=== PATIENT | male | born 1980 | race Caucasian/White ===

== ENCOUNTER 2023-05-05 21:48 | Emergency (ER) | payer SELFPAY ==
[2023-05-05 22:41] LABS: #Basophils 0.1 thou/uL (0.0-0.2); #Eosinphils 0.5 thou/uL (0.0-0.7); #Monocytes 0.8 thou/uL (0.11-0.59); %Basophils 0.6 % (0.0-1.0); %Eosinophils 6.2 % (0.0-10.0); %Lymphocytes 31.6 % (21.0-51.0); %Monocytes 10.3 % (0.0-10.0); Hematocrit 44.8 % (42.0-52.0); Hemoglobin 16.1 g/dL (14.0-18.0); Mean Corpuscular HGB CONC 35.9 g/dL (32.0-36.0); Mean Corpuscular Hemoglobin 32.5 pg (27.0-31.0); Mean Corpuscular Volume 90.3 fl (78.0-98.0); Mean Platelet Volume 9.7 fL (7.4-10.4); Platelet Count 224 10x3/uL (130-400); RBC Distribution Width 12.5 % (11.5-14.5); Red Blood Cell (RBC) Count 4.96 mill/uL (4.70-6.10); White Blood Cell (WBC) Count 7.8 10x3/uL (4.8-10.8)
[2023-05-05 23:06] LABS: ALT (SGPT) 87 U/L (8-55); AST (SGOT) 35 U/L (5-34); Albumin 4.2 g/dL (3.5-5.0); Alkaline Phosphatase 65 U/L (40-110); Anion Gap 12 mmol/L (10-20); BUN (Urea Nitrogen) 14 mg/dL (8.9-20.6); Bilirubin, Total 1.2 mg/dL (0.2-1.2); Calc. Creatinine Clearance 0 mL/min (70-130); Calcium 9.6 mg/dL (7.8-10.44); Carbon Dioxide 27 mmol/L (22-29); Chloride 103 mmol/L (98-107); Estimated GFR 92; Globulin 2.9 g/dL (2.4-3.5); Glucose 123 mg/dL (70-105); Lipase 37 U/L (8-78); Potassium 3.9 mmol/L (3.5-5.1); Protein, Total 7.1 g/dL (6.0-8.3); Sodium 138 mmol/L (136-145)
[2023-05-05 23:28] LABS: Troponin I 0.017 ng/mL (< 0.028)
[2023-05-05] MEDS ORDERED: Aspirin 325 MG TAB ONE (23:40)
[2023-05-05] MEDS ORDERED: Ondansetron PF 4 MG/2 ML Vial ONE (23:40)
[2023-05-05] MEDS ORDERED: Famotidine/PF 20 mg/2ml Vial ONE (23:40)
[2023-05-05] MEDS ORDERED: Dicyclomine 20 MG/2 ML VIAL ONE (23:40)
[2023-05-05] MEDS ORDERED: Mag-Al 1200 mg/1200 mg/30 ML UDCUP ONE (23:40)
[2023-05-05] MEDS ORDERED: hydrALAZINE 20 MG/ML VIAL ONE (23:44)
[2023-05-06] MEDS ORDERED: Morphine 4 MG/ML VIAL ONE (00:25)
[2023-05-06 01:38] LABS: Troponin I 0.018 ng/mL (< 0.028)
[2023-05-06] MEDS ORDERED: Iopamidol-370 76% 500 ML MDV (1 ML CHARGE) ONE (10:21)
== END 2023-05-06 03:27 | disposition home or self-care (01) ==
LOC: ERS 21:48
DX: K20.90 Esophagitis, unspecified without bleeding (principal); K29.70 Gastritis, unspecified, without bleeding; I10 Essential (primary) hypertension
CPT/HCPCS: 36415; 71045; 71275; 74174; 80053; 83690; 84484; 85025; 93005; 96372; 96374; 96375; J0360; J2270; J2405; Q9967; S0028

== ENCOUNTER 2023-05-07 19:30 | Emergency (ER) | payer SELFPAY ==
[2023-05-07] MEDS ORDERED: HYDROmorphone 0.5 MG/0.5 ML SYRINGE ONE (20:09)
[2023-05-07] MEDS ORDERED: Ondansetron PF 4 MG/2 ML Vial ONE (20:09)
[2023-05-07 20:14] LABS: #Basophils 0.1 thou/uL (0.0-0.2); #Eosinphils 0.4 thou/uL (0.0-0.7); #Monocytes 0.9 thou/uL (0.11-0.59); #Neutrophils 4.1 thou/uL (1.40-6.50); %Basophils 0.7 % (0.0-1.0); %Eosinophils 4.9 % (0.0-10.0); %Lymphocytes 25.6 % (21.0-51.0); %Monocytes 12.6 % (0.0-10.0); %Neutrophils 55.9 % (42.0-75.0); Hematocrit 45.8 % (42.0-52.0); Hemoglobin 15.9 g/dL (14.0-18.0); Mean Corpuscular HGB CONC 34.7 g/dL (32.0-36.0); Mean Corpuscular Hemoglobin 31.9 pg (27.0-31.0); Mean Platelet Volume 9.6 fL (7.4-10.4); Platelet Count 207 10x3/uL (130-400); RBC Distribution Width 12.6 % (11.5-14.5); Red Blood Cell (RBC) Count 4.98 mill/uL (4.70-6.10); White Blood Cell (WBC) Count 7.3 10x3/uL (4.8-10.8)
[2023-05-07 20:36] LABS: ALT (SGPT) 77 U/L (8-55); AST (SGOT) 35 U/L (5-34); Albumin 4.1 g/dL (3.5-5.0); Alkaline Phosphatase 61 U/L (40-110); Anion Gap 11 mmol/L (10-20); BUN (Urea Nitrogen) 14 mg/dL (8.9-20.6); Calc. Creatinine Clearance 0 mL/min (70-130); Calcium 9.3 mg/dL (7.8-10.44); Carbon Dioxide 29 mmol/L (22-29); Chloride 103 mmol/L (98-107); Estimated GFR 76; Globulin 3.3 g/dL (2.4-3.5); Glucose 108 mg/dL (70-105); Lipase 30 U/L (8-78); Magnesium 2.3 mg/dL (1.6-2.6); Potassium 4.3 mmol/L (3.5-5.1); Protein, Total 7.4 g/dL (6.0-8.3); Sodium 139 mmol/L (136-145)
[2023-05-07 20:40] LABS: Troponin I 0.019 ng/mL (< 0.028)
== END 2023-05-07 23:51 | disposition home or self-care (01) ==
LOC: ERS 19:30
DX: K80.20 Calculus of gallbladder without cholecystitis without obstruction (principal); R51.9 Headache, unspecified; R11.2 Nausea with vomiting, unspecified; I10 Essential (primary) hypertension
CPT/HCPCS: 70450; 71045; 75809; 76705; 80053; 83690; 83735; 84484; 85025; 93005; 96361; 96374; 96375; J1170; J2405

== ENCOUNTER 2023-05-31 20:00 | Observation (INO) | payer BC ==
[~2023-05-31 20:00] MED LIST: Iopamidol-370 76% 500 ML MDV (1 ML CHARGE) ONE
[2023-05-31 20:39] LABS: #Eosinphils 0.5 thou/uL (0.0-0.7); #Monocytes 0.9 thou/uL (0.11-0.59); #Neutrophils 4.3 thou/uL (1.40-6.50); %Basophils 0.5 % (0.0-1.0); %Lymphocytes 32.8 % (21.0-51.0); %Monocytes 10.8 % (0.0-10.0); %Neutrophils 49.6 % (42.0-75.0); Hematocrit 48.1 % (42.0-52.0); Mean Corpuscular HGB CONC 35.3 g/dL (32.0-36.0); Mean Corpuscular Hemoglobin 32.2 pg (27.0-31.0); Mean Corpuscular Volume 91.1 fl (78.0-98.0); Mean Platelet Volume 9.9 fL (7.4-10.4); Platelet Count 245 10x3/uL (130-400); RBC Distribution Width 12.1 % (11.5-14.5); Red Blood Cell (RBC) Count 5.28 mill/uL (4.70-6.10); White Blood Cell (WBC) Count 8.6 10x3/uL (4.8-10.8)
[2023-05-31 21:02] LABS: ALT (SGPT) 78 U/L (8-55); AST (SGOT) 31 U/L (5-34); Albumin 4.4 g/dL (3.5-5.0); Alkaline Phosphatase 69 U/L (40-110); Anion Gap 17 mmol/L (10-20); BUN (Urea Nitrogen) 13 mg/dL (8.9-20.6); Bilirubin, Total 0.9 mg/dL (0.2-1.2); Calc. Creatinine Clearance 0 mL/min (70-130); Calcium 9.7 mg/dL (7.8-10.44); Carbon Dioxide 26 mmol/L (22-29); Chloride 102 mmol/L (98-107); Estimated GFR 84; Globulin 3.5 g/dL (2.4-3.5); Glucose 148 mg/dL (70-105); Potassium 3.7 mmol/L (3.5-5.1); Protein, Total 7.9 g/dL (6.0-8.3); Sodium 141 mmol/L (136-145)
[2023-05-31 21:05] LABS: Troponin I Less than 0.010 ng/mL (< 0.028)
[2023-05-31] MEDS ORDERED: Ondansetron PF 4 MG/2 ML Vial ONE (21:12)
[2023-05-31] MEDS ORDERED: Ketorolac Tromethamine 30 MG/ML VIAL ONE (21:12)
[2023-05-31] MEDS ORDERED: Famotidine/PF 20 mg/2ml Vial ONE (21:12)
[2023-05-31] MEDS ORDERED: Morphine 4 MG/ML VIAL ONE (21:12)
[2023-06-01] MEDS ORDERED: TETANUS, DIPHTHERIA TOX,ADULT (TDVAX) 0.5 ML VIAL IM ONE (01:13)
[2023-06-01] MEDS ORDERED: Morphine 4 MG/ML VIAL SLOW IVP PRN (01:13)
[2023-06-01] MEDS ORDERED: hydrALAZINE 20 MG/ML VIAL SLOW IVP PRN (01:13)
[2023-06-01] MEDS ORDERED: Ondansetron PF 4 MG/2 ML Vial IVP PRN (01:13)
[2023-06-01] MEDS ORDERED: Ondansetron ODT 4 MG TAB PO PRN (01:13)
[2023-06-01] MEDS: Sodium Chloride 0.45% 1,000 ML IV SCH ×2 (02:57→08:10)
[2023-06-01] MEDS ORDERED: LevoFLOXacin 750 mg/D5W 750 MG in Premix Bag 1 BAG IVPB SCH (03:00)
[2023-06-01 03:15] VITALS: BMI 44.2
[2023-06-01] MEDS: D5 1/2 NS w/20 mEq KCL 1,000 ML IV SCH ×2 (05:27→08:10)
[2023-06-01] MEDS: Ketorolac Tromethamine 30 MG/ML VIAL IVP SCH ×2 (05:46→11:34)
[2023-06-01] MEDS ORDERED: Pantoprazole 40 MG VIAL IVP SCH (09:00)
[2023-06-01] MEDS ORDERED: Bupivacaine PF 0.5% 30 ML VIAL ONE (10:31)
[2023-06-01] MEDS ORDERED: EPINEPHrine 1 MG/ML AMP ONE (10:31)
[2023-06-01] MEDS ORDERED: fentaNYL 50 mcg/mL 1 mL Vial ONE ×2 (10:37→12:03)
[2023-06-01] MEDS ORDERED: SUGAMMADEX SODIUM 200 MG/2 ML VIAL ONE ×2 (10:37→11:29)
[2023-06-01] MEDS ORDERED: fentaNYL PF 100 MCG/2 ML SYRINGE ONE (10:37)
[2023-06-01] MEDS ORDERED: Ondansetron PF 4 MG/2 ML Vial ONE (10:48)
[2023-06-01] MEDS ORDERED: Rocuronium Bromide 10 MG/ML (10ML VIAL) ONE (10:48)
[2023-06-01] MEDS ORDERED: PROPOFOL 200 MG/20 ML VIAL ONE (10:48)
[2023-06-01] MEDS ORDERED: Lidocaine 1% PF 5 ML VIAL ONE (10:48)
[2023-06-01] MEDS ORDERED: Succinylcholine 200 MG/10 ml SYRINGE FS ONE (10:48)
[2023-06-01] MEDS ORDERED: Promethazine HCl 25 MG/ML VIAL IM PRN (11:51)
[2023-06-01] MEDS ORDERED: Ondansetron HCl/PF 4 MG/2 ML Vial IVP PRN (11:51)
[2023-06-01] MEDS ORDERED: Ibuprofen 600 MG TAB PO PRN (12:09)
[2023-06-01] MEDS ORDERED: Acetaminophen 500 MG TAB PO PRN (12:09)
[2023-06-01] MEDS ORDERED: traMADol HCl 50 MG TAB PO PRN (12:09)
[2023-06-01] MEDS ORDERED: Acetaminophen 500 MG TAB PO SCH (12:15)
[2023-06-01 12:44] VITALS: TEMP 97.8
[2023-06-01 14:16] VITALS: BP 164/92
[2023-06-02] MEDS ORDERED: Lisinopril/Hydrochlorothiazide 10 mg/12.5 mg Tablet PO SCH (09:00)
== END 2023-06-01 16:07 | disposition home or self-care (01) ==
LOC: ERS 20:00 → SURG A 06-01
PROVIDERS: ADMIT Specialist; ATTEND Specialist
PROC: 0FT44ZZ Resection of Gallbladder, Percutaneous Endoscopic Approach (ICD-10-PCS; principal; 2023-06-01)
DX: K80.12 Calculus of gallbladder with acute and chronic cholecystitis without obstruction (principal); E66.01 Morbid (severe) obesity due to excess calories; K76.0 Fatty (change of) liver, not elsewhere classified
CPT/HCPCS: 74177; 76705; 80053; 83690; 84484; 85025; 88304; 93005; 96361; 96374; 96375; 96376; C1889; G0378; J0171; J1885; J1956; J2270; J2405; J2704; J3010; Q9967; S0020; S0028

== ENCOUNTER 2023-07-21 14:11 | Inpatient (IN) | payer BC ==
[2023-07-21 15:03] LABS: #Eosinphils 0.3 thou/uL (0.0-0.7); #Monocytes 0.8 thou/uL (0.11-0.59); #Neutrophils 5.8 thou/uL (1.40-6.50); %Basophils 0.3 % (0.0-1.0); %Eosinophils 3.3 % (0.0-10.0); %Lymphocytes 19.9 % (21.0-51.0); %Monocytes 9.6 % (0.0-10.0); %Neutrophils 66.6 % (42.0-75.0); Hematocrit 48.5 % (42.0-52.0); Hemoglobin 16.9 g/dL (14.0-18.0); Mean Corpuscular HGB CONC 34.8 g/dL (32.0-36.0); Mean Corpuscular Hemoglobin 32.3 pg (27.0-31.0); Mean Corpuscular Volume 92.7 fl (78.0-98.0); Mean Platelet Volume 9.7 fL (7.4-10.4); Platelet Count 238 10x3/uL (130-400); RBC Distribution Width 13.1 % (11.5-14.5); Red Blood Cell (RBC) Count 5.23 mill/uL (4.70-6.10); White Blood Cell (WBC) Count 8.7 10x3/uL (4.8-10.8)
[2023-07-21 15:19] LABS: ALT (SGPT) 115 U/L (8-55); AST (SGOT) 49 U/L (5-34); Albumin 4.3 g/dL (3.5-5.0); Alkaline Phosphatase 74 U/L (40-110); Anion Gap 15 mmol/L (10-20); BUN (Urea Nitrogen) 15 mg/dL (8.9-20.6); Bilirubin, Total 2.6 mg/dL (0.2-1.2); Calc. Creatinine Clearance 0 mL/min (70-130); Calcium 9.4 mg/dL (7.8-10.44); Carbon Dioxide 27 mmol/L (22-29); Chloride 101 mmol/L (98-107); Estimated GFR 76; Globulin 3.4 g/dL (2.4-3.5); Glucose 126 mg/dL (70-105); Potassium 4.2 mmol/L (3.5-5.1); Protein, Total 7.7 g/dL (6.0-8.3); Sodium 139 mmol/L (136-145)
[2023-07-21 15:22] LABS: PTT 29.4 sec (22.9-36.1); Prothrombin Time 13.9 sec (12.0-14.7)
[2023-07-21 15:24] LABS: Troponin I 0.011 ng/mL (< 0.028)
[2023-07-21] MEDS ORDERED: niCARdipine 25 MG/10 ML SDV ONE ×2 (15:53→19:00)
[2023-07-21] MEDS ORDERED: niCARdipine 25 MG in Sodium Chloride 0.9% 250 ML 250 ML IVPB SCH ×2 (17:30)
[2023-07-21 18:11] VITALS: BMI 40.0
[2023-07-21] MEDS ORDERED: Acetaminophen 325 MG TAB ONE ×2 (18:26→18:28)
[2023-07-21] MEDS: Acetaminophen 325 MG TAB PO PRN (18:29)
[2023-07-21] MEDS ORDERED: Ondansetron PF 4 MG/2 ML Vial IVP PRN (18:41)
[2023-07-21] MEDS ORDERED: levETIRAcetam 500 MG/5 ML VIAL SLOW IVP SCH (18:45)
[2023-07-21] MEDS ORDERED: Dexamethasone 10 MG/ML VIAL SLOW IVP SCH (19:15)
[2023-07-21] MEDS ORDERED: Pantoprazole 40 MG VIAL IVP SCH (19:15)
[2023-07-21] MEDS ORDERED: levETIRAcetam 500 MG/5 ML VIAL ONE (19:59)
[2023-07-21] MEDS ORDERED: Pantoprazole 40 MG VIAL ONE (20:38)
[2023-07-21] MEDS ORDERED: Dexamethasone 10 MG/ML VIAL ONE (20:38)
[2023-07-22] MEDS ORDERED: niCARdipine 25 MG/10 ML SDV ONE ×3 (00:18→05:57)
[2023-07-22] MEDS ORDERED: Dexamethasone 10 MG/ML VIAL ONE ×2 (01:48→07:56)
[2023-07-22] MEDS: Dexamethasone 4 mg/ml Vial SLOW IVP SCH ×4 (01:52→21:12)
[2023-07-22] MEDS ORDERED: Morphine 4 MG/ML VIAL ONE ×2 (04:08→08:15)
[2023-07-22] MEDS: Morphine 4 MG/ML VIAL SLOW IVP PRN ×2 (04:15→08:20)
[2023-07-22 04:32] LABS: #Monocytes 0.1 thou/uL (0.11-0.59); %Basophils 0.1 % (0.0-1.0); %Eosinophils 0.1 % (0.0-10.0); %Lymphocytes 9.1 % (21.0-51.0); %Monocytes 0.9 % (0.0-10.0); %Neutrophils 89.1 % (42.0-75.0); Hematocrit 47.7 % (42.0-52.0); Hemoglobin 16.5 g/dL (14.0-18.0); Mean Corpuscular HGB CONC 34.6 g/dL (32.0-36.0); Mean Corpuscular Hemoglobin 32.5 pg (27.0-31.0); Mean Corpuscular Volume 93.9 fl (78.0-98.0); Mean Platelet Volume 9.6 fL (7.4-10.4); Platelet Count 243 10x3/uL (130-400); RBC Distribution Width 12.9 % (11.5-14.5); Red Blood Cell (RBC) Count 5.08 mill/uL (4.70-6.10); White Blood Cell (WBC) Count 8.9 10x3/uL (4.8-10.8)
[2023-07-22 05:00] LABS: ALT (SGPT) 103 U/L (8-55); AST (SGOT) 41 U/L (5-34); Albumin 4.1 g/dL (3.5-5.0); Alkaline Phosphatase 75 U/L (40-110); Anion Gap 15 mmol/L (10-20); BUN (Urea Nitrogen) 16 mg/dL (8.9-20.6); Bilirubin, Total 3.1 mg/dL (0.2-1.2); Calc. Creatinine Clearance 159 mL/min (70-130); Carbon Dioxide 22 mmol/L (22-29); Chloride 105 mmol/L (98-107); Estimated GFR 92; Globulin 3.7 g/dL (2.4-3.5); Glucose 181 mg/dL (70-105); Potassium 4.8 mmol/L (3.5-5.1); Protein, Total 7.8 g/dL (6.0-8.3); Sodium 137 mmol/L (136-145)
[2023-07-22] MEDS ORDERED: levETIRAcetam 500 MG/5 ML VIAL ONE (07:56)
[2023-07-22] MEDS ORDERED: Pantoprazole 40 MG VIAL ONE (07:56)
[2023-07-22] MEDS: Pantoprazole 40 MG VIAL IVP SCH (08:08)
[2023-07-22] MEDS: levETIRAcetam 500 MG/5 ML VIAL SLOW IVP SCH ×2 (08:08→21:12)
[2023-07-22] MEDS ORDERED: Lisinopril 10 MG TAB ONE (08:26)
[2023-07-22] MEDS ORDERED: HYDROCHLOROTHIAZIDE PO SCH (09:00)
[2023-07-22] MEDS: Hydrochlorothiazide 25 MG TAB PO SCH (09:00)
[2023-07-22] MEDS: Lisinopril 10 MG TAB PO SCH (09:00)
[2023-07-22] MEDS ORDERED: LISINOPRIL PO SCH (09:00)
[2023-07-22] MEDS ORDERED: [UNRECOGNIZED DRUG - OTHER] PO SCH (09:00)
[2023-07-22] MEDS: Acetaminophen 325 MG TAB PO PRN (21:11)
[2023-07-22] MEDS ORDERED: Morphine 2 MG/ML VIAL SLOW IVP SCH (23:59)
[2023-07-23] MEDS: Dexamethasone 4 mg/ml Vial SLOW IVP SCH ×4 (02:21→20:20)
[2023-07-23] MEDS: levETIRAcetam 500 MG/5 ML VIAL SLOW IVP SCH (09:01)
[2023-07-23] MEDS: Hydrochlorothiazide 25 MG TAB PO SCH (09:02)
[2023-07-23] MEDS: Lisinopril 10 MG TAB PO SCH (09:02)
[2023-07-23] MEDS: Pantoprazole 40 MG VIAL IVP SCH (09:03)
[2023-07-23] MEDS: Acetaminophen 325 MG TAB PO PRN (13:25)
[2023-07-23] MEDS: levETIRAcetam 500 MG TAB PO SCH (20:20)
[2023-07-24] MEDS: Dexamethasone 4 mg/ml Vial SLOW IVP SCH (03:31)
[2023-07-24] MEDS: Dexamethasone 4 MG TAB PO SCH ×3 (09:13→20:27)
[2023-07-24] MEDS: levETIRAcetam 500 MG TAB PO SCH ×2 (09:13→20:27)
[2023-07-24] MEDS: Hydrochlorothiazide 25 MG TAB PO SCH (09:13)
[2023-07-24] MEDS: Lisinopril 10 MG TAB PO SCH (09:13)
[2023-07-24] MEDS: Acetaminophen 325 MG TAB PO PRN (09:15)
[2023-07-24] MEDS ORDERED: Amlodipine 10 MG TAB PO SCH (14:45)
[2023-07-25] MEDS: Dexamethasone 4 MG TAB PO SCH ×4 (02:54→20:12)
[2023-07-25] MEDS ORDERED: hydrALAZINE 20 MG/ML VIAL SLOW IVP SCH (05:00)
[2023-07-25] MEDS ORDERED: Glucagon 1 MG/ML KIT IM PRN (07:25)
[2023-07-25] MEDS ORDERED: Dextrose 50% Abboject 50 ML SYRINGE SLOW IVP PRN (07:25)
[2023-07-25] MEDS ORDERED: Dextrose 5% in Water 1,000 ML IV PRN (07:25)
[2023-07-25 07:49] LABS: #Monocytes 1.2 thou/uL (0.11-0.59); #Neutrophils 9.1 thou/uL (1.40-6.50); %Basophils 0.2 % (0.0-1.0); %Eosinophils 0.2 % (0.0-10.0); %Lymphocytes 14.4 % (21.0-51.0); %Monocytes 10.1 % (0.0-10.0); %Neutrophils 74.4 % (42.0-75.0); Hematocrit 47.3 % (42.0-52.0); Hemoglobin 16.3 g/dL (14.0-18.0); Mean Corpuscular HGB CONC 34.5 g/dL (32.0-36.0); Mean Corpuscular Hemoglobin 32.1 pg (27.0-31.0); Mean Corpuscular Volume 93.3 fl (78.0-98.0); Mean Platelet Volume 9.9 fL (7.4-10.4); Platelet Count 230 10x3/uL (130-400); RBC Distribution Width 13.1 % (11.5-14.5); Red Blood Cell (RBC) Count 5.07 mill/uL (4.70-6.10); White Blood Cell (WBC) Count 12.2 10x3/uL (4.8-10.8)
[2023-07-25 08:12] LABS: ALT (SGPT) 79 U/L (8-55); AST (SGOT) 32 U/L (5-34); Albumin 3.9 g/dL (3.5-5.0); Alkaline Phosphatase 60 U/L (40-110); Anion Gap 14 mmol/L (10-20); BUN (Urea Nitrogen) 18 mg/dL (8.9-20.6); Bilirubin, Total 1.1 mg/dL (0.2-1.2); Calc. Creatinine Clearance 200 mL/min (70-130); Calcium 8.9 mg/dL (7.8-10.44); Carbon Dioxide 28 mmol/L (22-29); Chloride 101 mmol/L (98-107); Estimated GFR 111; Globulin 3.1 g/dL (2.4-3.5); Glucose 145 mg/dL (70-105); Sodium 139 mmol/L (136-145)
[2023-07-25] MEDS: Amlodipine 10 MG TAB PO SCH (09:00)
[2023-07-25] MEDS ORDERED: Lisinopril 10 MG TAB PO SCH ×2 (09:00→10:30)
[2023-07-25] MEDS: Hydrochlorothiazide 25 MG TAB PO SCH (09:00)
[2023-07-25] MEDS: levETIRAcetam 500 MG TAB PO SCH ×2 (09:00→20:13)
[2023-07-25] MEDS: HumaLOG 300 UNITS/3 ML VIAL SC PRN ×2 (18:05→21:59)
[2023-07-25] MEDS: Lisinopril 20 MG TAB PO SCH (20:13)
[2023-07-25] MEDS: Acetaminophen 325 MG TAB PO PRN (20:15)
[2023-07-26] MEDS: Dexamethasone 4 MG TAB PO SCH (02:52)
[2023-07-26] MEDS ORDERED: Dexamethasone 1 MG TAB PO SCH (08:00)
[2023-07-26] MEDS ORDERED: hydrALAZINE 25 MG TAB PO SCH (09:00)
[2023-07-26] MEDS: Amlodipine 10 MG TAB PO SCH (09:38)
[2023-07-26] MEDS: Hydrochlorothiazide 25 MG TAB PO SCH (09:40)
[2023-07-26] MEDS: levETIRAcetam 500 MG TAB PO SCH (09:40)
[2023-07-26] MEDS: Lisinopril 20 MG TAB PO SCH (09:41)
[2023-07-26 11:46] VITALS: TEMP 97.8
[2023-07-26 14:31] VITALS: BP 136/77
[2023-07-28] MEDS ORDERED: Dexamethasone 1 MG TAB PO SCH (08:00)
[2023-07-30] MEDS ORDERED: Dexamethasone 1 MG TAB PO SCH (08:00)
== END 2023-07-26 12:15 | disposition home or self-care (01) | DRG 64 ==
LOC: ERS 14:11 → ERHOLD 16:39 → 2SE 07-22 14:32
PROVIDERS: ADMIT Internal Medicine; ATTEND Internal Medicine
DX: I61.0 Nontraumatic intracerebral hemorrhage in hemisphere, subcortical (principal); G93.6 Cerebral edema; G81.91 Hemiplegia, unspecified affecting right dominant side; G91.9 Hydrocephalus, unspecified; Z68.41 Body mass index [BMI] 40.0-44.9, adult; G47.33 Obstructive sleep apnea (adult) (pediatric); I10 Essential (primary) hypertension; E80.6 Other disorders of bilirubin metabolism; K75.81 Nonalcoholic steatohepatitis (NASH); E66.01 Morbid (severe) obesity due to excess calories; R74.01 Elevation of levels of liver transaminase levels; Z90.49 Acquired absence of other specified parts of digestive tract; Z82.49 Family history of ischemic heart disease and other diseases of the circulatory system; Z98.2 Presence of cerebrospinal fluid drainage device; Z91.199 Patient's noncompliance with other medical treatment and regimen due to unspecified reason
CPT/HCPCS: 36415; 36416; 70450; 70496; 71045; 76705; 80053; 84484; 85025; 85610; 85730; 93005; 93306; 94660; 96365; 96366; C9113; J0360; J1100; J1815; J1953; J2270; J2272; J7050; J8540; Q9967

== ENCOUNTER 2023-08-07 02:17 | Emergency (ER) | payer BC ==
[2023-08-07 03:12] LABS: #Eosinphils 0.4 thou/uL (0.0-0.7); #Monocytes 0.8 thou/uL (0.11-0.59); #Neutrophils 6.4 thou/uL (1.40-6.50); %Basophils 0.4 % (0.0-1.0); %Eosinophils 4.3 % (0.0-10.0); %Lymphocytes 16.1 % (21.0-51.0); %Monocytes 9.2 % (0.0-10.0); %Neutrophils 69.7 % (42.0-75.0); Hematocrit 41.5 % (42.0-52.0); Hemoglobin 14.7 g/dL (14.0-18.0); Mean Corpuscular HGB CONC 35.4 g/dL (32.0-36.0); Mean Corpuscular Hemoglobin 32.7 pg (27.0-31.0); Mean Corpuscular Volume 92.2 fl (78.0-98.0); Mean Platelet Volume 9.8 fL (7.4-10.4); Platelet Count 225 10x3/uL (130-400); RBC Distribution Width 12.1 % (11.5-14.5); White Blood Cell (WBC) Count 9.2 10x3/uL (4.8-10.8)
[2023-08-07 03:27] LABS: Prothrombin Time 13.5 sec (12.0-14.7)
[2023-08-07 03:28] LABS: PTT 28.5 sec (22.9-36.1)
[2023-08-07] MEDS ORDERED: Acetaminophen 500 MG TAB ONE (03:33)
[2023-08-07 03:34] LABS: ALT (SGPT) 78 U/L (8-55); AST (SGOT) 26 U/L (5-34); Albumin 3.9 g/dL (3.5-5.0); Alkaline Phosphatase 63 U/L (40-110); Anion Gap 12 mmol/L (10-20); BUN (Urea Nitrogen) 17 mg/dL (8.9-20.6); Calc. Creatinine Clearance 0 mL/min (70-130); Carbon Dioxide 26 mmol/L (22-29); Chloride 101 mmol/L (98-107); Estimated GFR 91; Globulin 2.8 g/dL (2.4-3.5); Glucose 133 mg/dL (70-105); Potassium 3.9 mmol/L (3.5-5.1); Protein, Total 6.7 g/dL (6.0-8.3); Sodium 135 mmol/L (136-145)
[2023-08-07 03:37] LABS: Troponin I Less than 0.010 ng/mL (< 0.028)
[2023-08-07] MEDS ORDERED: Dexamethasone 4 MG TAB ONE (04:43)
[2023-08-07] MEDS ORDERED: levETIRAcetam 500 MG TAB ONE (05:34)
== END 2023-08-07 05:35 | disposition home or self-care (01) ==
LOC: ERS 02:17
DX: I62.9 Nontraumatic intracranial hemorrhage, unspecified (principal); R51.9 Headache, unspecified; I10 Essential (primary) hypertension; W06.XXXA Fall from bed, initial encounter
CPT/HCPCS: 36415; 70450; 72125; 84484; 85610; 85730; 93005; J8540

== ENCOUNTER 2023-10-09 12:24 | Emergency (ER) | payer OTHER, BC | END 2023-10-09 13:41 | disposition home or self-care (01) | LOC: ERS 12:24 | DX: S61.012A Laceration without foreign body of left thumb without damage to nail, initial encounter (principal); I10 Essential (primary) hypertension; W26.8XXA Contact with other sharp object(s), not elsewhere classified, initial encounter; Z55.6 Problems related to health literacy | CPT/HCPCS: 99282 ==

== ENCOUNTER 2023-10-22 16:00 | Outpatient (CLI) | payer BC | END 2023-10-22 16:01 | disposition home or self-care (01) | LOC: SLEEPLAB 16:00 | PROVIDERS: ATTEND Physician Assistant | DX: G47.33 Obstructive sleep apnea (adult) (pediatric) (principal); I10 Essential (primary) hypertension; R53.83 Other fatigue; R06.83 Snoring; E66.9 Obesity, unspecified; Z68.36 Body mass index [BMI] 36.0-36.9, adult | CPT/HCPCS: 95811 ==

== ENCOUNTER 2023-10-29 23:16 | Emergency (ER) | payer BC ==
[2023-10-29] MEDS ORDERED: diphenhydrAMINE 50 MG/ML VIAL ONE (23:57)
[2023-10-29] MEDS ORDERED: Metoclopramide HCl 10 MG (2 mL) VIAL ONE (23:57)
[2023-10-29 23:59] LABS: %Eosinophils 6.1 % (0.0-10.0); %Lymphocytes 30.2 % (21.0-51.0); %Monocytes 12.3 % (0.0-10.0); %Neutrophils 50.7 % (42.0-75.0); Hematocrit 43.7 % (42.0-52.0); Hemoglobin 15.5 g/dL (14.0-18.0); Mean Corpuscular HGB CONC 35.5 g/dL (32.0-36.0); Mean Corpuscular Hemoglobin 32.2 pg (27.0-31.0); Mean Corpuscular Volume 90.9 fl (78.0-98.0); Mean Platelet Volume 9.9 fL (7.4-10.4); Platelet Count 203 10x3/uL (130-400); RBC Distribution Width 12.2 % (11.5-14.5); Red Blood Cell (RBC) Count 4.81 mill/uL (4.70-6.10); White Blood Cell (WBC) Count 7.7 10x3/uL (4.8-10.8)
[2023-10-30] LABS: #Eosinphils 0.5 thou/uL (0.0-0.7); #Neutrophils 3.9 thou/uL (1.40-6.50); %Basophils 0.4 % (0.0-1.0)
[2023-10-30 00:17] LABS: ALT (SGPT) 76 U/L (8-55); AST (SGOT) 29 U/L (5-34); Alkaline Phosphatase 62 U/L (40-110); Anion Gap 13 mmol/L (10-20); BUN (Urea Nitrogen) 12 mg/dL (8.9-20.6); Bilirubin, Total 1.8 mg/dL (0.2-1.2); Calc. Creatinine Clearance 0 mL/min (70-130); Calcium 8.9 mg/dL (7.8-10.44); Carbon Dioxide 27 mmol/L (22-29); Chloride 106 mmol/L (98-107); Estimated GFR 91; Globulin 2.9 g/dL (2.4-3.5); Glucose 108 mg/dL (70-105); Lipase 30 U/L (8-78); Potassium 3.8 mmol/L (3.5-5.1); Protein, Total 6.9 g/dL (6.0-8.3); Sodium 142 mmol/L (136-145)
== END 2023-10-30 02:31 | disposition home or self-care (01) ==
LOC: ERS 23:16
DX: R51.9 Headache, unspecified (principal); I10 Essential (primary) hypertension; K44.9 Diaphragmatic hernia without obstruction or gangrene; Z55.6 Problems related to health literacy; Z79.899 Other long term (current) drug therapy
CPT/HCPCS: 70450; 72125; 75809; 80053; 83690; 85025; 93005; 96365; 96375; J1200; J2765